=== PATIENT | male | born 1985 | race African-American/Black ===

== ENCOUNTER 2019-09-08 18:27 | Emergency (ER) | payer SELFPAY ==
--- OUTSIDE RECORDS SUMMARY | 2019-09-08 18:30 | XMS REPORT ---
[facility] Address Unknown Phone Unavailable Care Team Providers Care Golf Sales Manager Name Role Phone Unavailable Unavailable Problems This patient has no known problems. Allergies, Adverse Reactions, Alerts This patient has no known allergies or adverse reactions. Medications This patient has no known medications. Encounters Start Date/Time End Date/Time Encounter Type Admission Type Attending Clinicians Care Facility Care Department Encounter ID 2018-12-16 22:17:00 2018-12-16 22:17:00 Emergency E [id number] 2018-02-19 05:45:00 2018-02-19 05:45:00 [address] [id number]
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
--- OUTSIDE RECORDS SUMMARY | 2019-09-08 18:31 | XMS REPORT | Summary of Care ---
Author Author [facility] - Health Organization [facility] - Health Address Unknown Phone Unavailable Care Team Providers Care Underwriting Analyst Name Role Phone Pcp, Patient Does Not Have A PCP Krysten Qureshi MD PCP Reason for Referral * Radiology Services ([facility]) Referred By Contact Referred To Contact Status Reason Specialty Diagnoses / Procedures Graciela Garces MD [address] [place] [address] New Request Diagnostic Diagnoses Radiology Trauma P rocedures XR CHEST 2 VW * Radiology Services (STAT) Referred By Contact Referred To Contact Status Reason Specialty Diagnoses / [place] [address] [place] [address] New Request Diagnostic Diagnoses Radiology Trauma P rocedures XR CHEST 1 VW * Radiology Services (STAT) Referred By Contact Referred To Contact Status Reason Specialty Diagnoses / Procedures Madie Arana DO [address] [id number] New Request Diagnostic Diagnoses Radiology Trauma P rocedures XR ELBOW >3 VW RIGHT * Radiology Services (STAT) Referred By Contact Referred To Contact Status Reason Specialty Diagnoses / Procedures Madie Arana DO [address] [employer] [address] [address] New Request Diagnostic Diagnoses Radiology Trauma P rocedures XR HAND 3+ VW LEFT * Radiology Services (STAT) Referred By Contact Referred To Contact Status Reason Specialty Diagnoses / Procedures Madie Arana DO [address] [employer] [address] [address] New Request Diagnostic Diagnoses Radiology Trauma P rocedures XR FOREARM 2 VW LEFT * Radiology Services (STAT) Referred By Contact Referred To Contact Status Reason Specialty Diagnoses / Procedures Madie Arana DO [address] [place] [address] New Request Diagnostic Diagnoses Radiology Trauma P rocedures XR HUMERUS 2 VW LEFT * MRI/CAT Scan (STAT) Referred By Contact Referred To Contact Status Reason Specialty Diagnoses / Procedures Madie Arana DO [address] [place] [address] New Request Diagnostic Diagnoses Radiology Trauma P rocedures CT LUMBAR SPINE WO CONTRAST * MRI/CAT Scan (STAT) Referred By Contact Referred To Contact Status Reason Specialty Diagnoses / Procedures Madie Arana DO [address] [place] [address] New Request Diagnostic Diagnoses Radiology Trauma P rocedures CT ABDOMEN PELVIS W CONTRAST * MRI/CAT Scan (STAT) Referred By Contact Referred To Contact Status Reason Specialty Diagnoses / Procedures Madei Arana DO [address] [place] [address] New Request Diagnostic Diagnoses Radiology Trauma P rocedures CT THORACIC SPINE WO CONTRAST * MRI/CAT Scan (STAT) Referred By Contact Referred To Contact Status Reason Specialty Diagnoses / Procedures Madie Arana DO [address] [place] [address] New Request Diagnostic Diagnoses Radiology Trauma P rocedures CT CERVICAL SPINE WO CONTRAST * MRI/CAT Scan (STAT) Referred By Contact Referred To Contact Status Reason Specialty Diagnoses / Procedures Madie Arana DO [address] [place] [address] New Request Diagnostic Diagnoses Radiology Trauma P rocedures CT THORAX W CONTRAST * MRI/CAT Scan (STAT) Referred By Contact Referred To Contact Status Reason Specialty Diagnoses / Procedures Madie Arana DO [address] [place] [address] New Request Diagnostic Diagnoses Radiology Trauma P rocedures CT HEAD WO CONTRAST * Radiology Services (STAT) Referred By Contact Referred To Contact Status Reason Specialty Diagnoses / Procedures Madie Arana [id number] [place] [address] New Request Diagnostic Diagnoses Radiology Trauma P rocedures Chest 1 View * MRI/CAT Scan (STAT) Referred By Contact Referred To Contact Status Reason Specialty Diagnoses / Procedures Madie Arana, DO [address] [facility] [address] [place] [address] New Request Diagnostic Diagnoses Radiology Trauma P rocedures CT MAXILLA-FACIAL WO CONTRAST Reason for Visit * Reason Comments Altered mental status * Auth/Cert Referred By Contact Referred To Contact Status Reason Specialty Diagnoses / Procedures [facility] Emergency Dept [address] [place] [address] Emergency Medicine Encounter Details Care Team Description Date Type Department Madie Arana, [id number] [place] [address] [phone] Armen Velazquez MD [address] [place] [address] Seizure 08/29/2019 Emergency [facility] Health - Medicine/Surgery C[facility] 6B 08/30/2019 [address] [place] [address] Allergies No Known Allergiesdocumented as of this encounter (statuses as of 08/30/2019) Medications End Date Status Medication Sig Dispensed Refills Start Date Active clonazePAM 1 mg tablet Take 1 mg by 0 mouth 2 (two) times daily. Active ibuprofen 600 mg Take 1 tablet 40 tablet 0 tabletIndications: Trauma by mouth 0 every 6 (six) hours as needed for Pain (scale 4-6). 09/04/2019 Active HYDROcodone-acetaminophen Take 1 tablet 28 tablet 0 5-325 mg by mouth 0 tabletIndications: Trauma every 6 (six) hours as needed for Pain (scale 4-6) for up to 5 days. 09/04/2019 Active methocarbamol 500 mg Take 1 tablet 15 tablet 0 tabletIndications: Trauma by mouth 3 0 (three) times daily for 5 days. documented as of this encounter (statuses as of 08/30/2019) Active Problems Problem Noted Date Seizure 08/29/2019 Obesity (BMI 30-39.9) 08/29/2019 documented as of this encounter (statuses as of 08/30/2019) Immunizations Name Administration Dates Next Due Td 08/29/2019 documented as of this encounter Social History Date Tobacco Use Types Packs/Day Years Used Former Smoker Comments: stopped smoking about 3 months ago Education Answer Date Recorded What is the highest level of school you have High school graduate 08/29/2019 completed or the highest degree you have received? Financial Resource Strain Answer Date Recorded How hard is it for you to pay for the very basics Not hard at all 08/29/2019 like food, housing, medical care, and heating? Food Insecurity Answer Date Recorded Within the past 12 months, you worried that your Never true 08/29/2019 food would run out before you got money to buy more. Within the past 12 months, the food you bought Never true 08/29/2019 just didn't last and you didn't have money to get more. Transportation Needs Answer Date Recorded In the past 12 months, has lack of transportation No 08/29/2019 kept you from medical appointments or from getting medications? In the past 12 months, has lack of transportation No 08/29/2019 kept you from meetings, work, or getting things needed for daily living? Sex Assigned at Date Recorded Not on file Industry Job Start Date Occupation Not on file Not on file Not on file Travel End Travel History Travel Start No recent travel history available. documented as of this encounter Last Filed Vital Signs Reading Time Taken Comments Vital Sign 133/77 08/30/2019 11:14 AM CDT Blood Pressure 61 08/30/2019 11:14 AM CDT Pulse 36.7 C (98 F) 08/30/2019 11:14 AM CDT Temperature 18 08/30/2019 11:14 AM CDT Respiratory Rate 96% 08/30/2019 11:14 AM CDT Oxygen Saturation - - Inhaled Oxygen Concentration 100.2 kg (221 lb) 08/29/2019 3:40 AM CDT Weight 177.8 cm (5' 10") 08/29/2019 3:40 AM CDT Height 31.71 08/29/2019 3:40 AM CDT Body Mass Index documented in this encounter Discharge Summaries * Graciela Garces MD - 08/30/2019 11:38 AM CDT CLS Team Discharge Summary Date of Service: 08/30/2019 ADMIT DATE: 08/29/2019 DISCHARGE DATE: 08/30/2019 ATTENDING MD: Graciela Garces MD PCP: PATIENT DOES NOT HAVE A PCP REASON FOR ADMISSION Trauma FINAL DIAGNOSIS: Trauma Seizure post trauma Suspected pneumothorax/trumatic. Active Problems: Seizure (08/29/2019) POA: Yes Obesity (BMI 30-39.9) (08/29/2019) POA: Unknown Resolved Problems: * No resolved hospital problems. * Orders Placed This Encounter CONSULT NEUROLOGY CONSULT PAIN SERVICES Orders Placed This Encounter Fast Ultrasound Temp: [36.4 C (97.5 F)-37.4 C (99.4 F)] Pulse: [61-85] Resp: [18-20] BP: (113-138)/(69-94) Physical Exam SIGNIFICANT LAB/X-RAYS: Recent Results (from the past 48 hour(s)) POCT GLUCOSE (AUTOMATED) Collection Time: 08/29/19 3:44 AM Result Value Ref Range POCT GLU 238 (H) 70 - 110 mg/dL Basic Metabolic Panel (NA, K, CL, CO2, GLUCOSE, BUN, CREATININE, CA) Collection Time: 08/29/19 4:00 AM Result Value Ref Range NA 142 135 - 145 mmol/L K 3.7 3.5 - 5.0 mmol/L CL 109 (H) 98 - 108 mmol/L CO2 TOTAL 20 (L) 23 - 31 mmol/L AGAP 13 2 - 16 BUN 10 7 - 23 mg/dL GLUCOSE 200 (H) 70 - 110 mg/dL CREATININE 0.81 0.60 - 1.25 mg/dL CALCIUM 8.5 (L) 8.6 - 10.6 mg/dL eGFR Calculation (Non-) 110.4 mL/min/1.73m2 eGFR Calculation () 133.8 mL/min/1.73m2 Profile / Hemogram Collection Time: 08/29/19 4:00 AM Result Value Ref Range WBC 6.48 4.20 - 10.70 10*3/L RBC 4.35 4.26 - 5.52 10*6/L HGB 14.1 12.2 - 16.4 g/dL HCT 40.1 38.4 - 49.3 % MCH 32.4 26.1 - 32.7 pg MCV 92.2 81.7 - 95.6 fL MCHC 35.2 (H) 31.2 - 35.0 g/dL PLT 219 150 - 328 10*3/L MPV 9.3 (L) 9.8 - 13.0 fL RDW-CV 12.2 12.1 - 15.4 % RDW-SD 41.2 38.5 - 51.6 fL NRBC x10^3 <0.01 10*3/L NRBC/100 WBC 0.0 0.0 - 10.0 /100 WBCs IPF % Prothrombin Time (PT) / INR Collection Time: 08/29/19 4:00 AM Result Value Ref Range PROTIME PATIENT 10.9 10.1 - 12.6 Seconds INR 1.0 aPTT Collection Time: 08/29/19 4:00 AM Result Value Ref Range APTT Patient 24 (L) 26 - 36 Seconds HEPATIC FUNCTION PANEL (80010) (ALB,T.PRO,BILI T,BU/BC,ALT,AST,ALK PHOS) Collection Time: 08/29/19 4:00 AM Result Value Ref Range TOTAL BILI 0.5 0.1 - 1.1 mg/dL BILI UNCON 0.6 0.1 - 1.1 mg/dL BILI CONJ 0.0 0.0 - 0.3 mg/dL T PROTEIN 7.0 6.3 - 8.2 g/dL ALBUMIN 4.4 3.5 - 5.0 g/dL ALK PHOS 41 34 - 122 U/L ALTv 23 5 - 50 U/L AST(SGOT) 29 13 - 40 U/L DRUG PANEL 2 URINE Collection Time: 08/29/19 4:01 AM Result Value Ref Range AMPHET Presumptive Positive (A) Negative NEO U Negative Negative BENZO U Negative Negative Cocaine Metabolite Negative Negative METHADONE Negative Negative OPIATES Negative Negative PCP Negative Negative THC Negative Negative Acute Care Arterial Blood Gas. Collection Time: 08/29/19 4:53 AM Result Value Ref Range PH 7.30 (L) 7.35 - 7.45 PCO2 39 35 - 45 mmHg PO2 151 (H) 80 - 100 mmHg HCO3 19 (L) 22 - 26 mEq/L BE -7.0 (L) -3.0 - 3.0 mEq/L POCT GLUCOSE (AUTOMATED) Collection Time: 08/29/19 5:07 AM Result Value Ref Range POCT GLU 89 70 - 110 mg/dL POCT GLUCOSE (AUTOMATED) Collection Time: 08/29/19 5:50 AM Result Value Ref Range POCT GLU 88 70 - 110 mg/dL Xr Chest 1 Vw Result Date: 08/29/2019 No acute intrathoracic abnormality. Chest 1 View Result Date: 08/29/2019 Impression: No radiographic evidence for acute cardiopulmonary disease. RL: 460 AFC: [id number] Xr Chest 2 Vw Result Date: 08/30/2019 No acute intrathoracic abnormality. Ct Abdomen Pelvis W Contrast Result Date: 08/29/2019 2 tiny foci of pneumothorax in the right lung apex versus paraseptal emphysema. No rib fracture is appreciated. Dependent atelectasis in the lungs bilaterally. No CT evidence for acute trauma to the abdomen or pelvis. No acute fracture or d islocation of the thoracic or lumbar spine. RL: 460 AFC: [id number] Electronically si gned by Sharita Rivas MD, PhD at 08/29/2019 5:[address] Cervical Spine Wo Contrast Result Date: 08/29/2019 Impression: No CT evidence for acute intracranial abnormality. No acute facial f racture. Subcutaneous hematoma overlying the left zygomatic arch. No acute fract ure or dislocation of the cervical spine. RL: 460 AFC: [id number] Electronically sign ed by Sharita Rivas MD, PhD at 08/29/2019 5:[address] Maxilla-facial Wo Contrast Result Date: 08/29/2019 Impression: No CT evidence for acute intracranial abnormality. No acute facial f racture. Subcutaneous hematoma overlying the left zygomatic arch. No acute fract ure or dislocation of the cervical spine. RL: 460 AFC: [id number] Electronically sign ed by Sharita Rivas MD, PhD at 08/29/2019 5:[address] Head Wo Contrast Result Date: 08/29/2019 Impression: No CT evidence for acute intracranial abnormality. No acute facial f racture. Subcutaneous hematoma overlying the left zygomatic arch. No acute fract ure or dislocation of the cervical spine. RL: 460 AFC: [id number] Electronically sign ed by Sharita Rivas MD, PhD at 08/29/2019 5:[address] Lumbar Spine Wo Contrast Result Date: 08/29/2019 2 tiny foci of pneumothorax in the right lung apex versus paraseptal emphysema. No rib fracture is appreciated. Dependent atelectasis in the lungs bilaterally. No CT evidence for acute trauma to the abdomen or pelvis. No acute fracture or d islocation of the thoracic or lumbar spine. RL: 460 AFC: [id number] Electronically si gned by Sharita Rivas MD, PhD at 08/29/2019 5:[address] Thoracic Spine Wo Contrast Result Date: 08/29/2019 2 tiny foci of pneumothorax in the right lung apex versus paraseptal emphysema. No rib fracture is appreciated. Dependent atelectasis in the lungs bilaterally. No CT evidence for acute trauma to the abdomen or pelvis. No acute fracture or d islocation of the thoracic or lumbar spine. RL: 460 AFC: [id number] Electronically si gned by Sharita Rivas MD, PhD at 08/29/2019 5:[address] Thorax W Contrast Result Date: 08/29/2019 2 tiny foci of pneumothorax in the right lung apex versus paraseptal emphysema. No rib fracture is appreciated. Dependent atelectasis in the lungs bilaterally. No CT evidence for acute trauma to the abdomen or pelvis. No acute fracture or d islocation of the thoracic or lumbar spine. RL: 460 AFC: [id number] Electronically si gned by Sharita Rivas MD, PhD at 08/29/2019 5:33 AM Xr Elbow >3 Vw Right Result Date: 08/29/2019 Status post extensive plate and screw fixation of the proximal ulna. No definite acute fracture is appreciated. Evaluation is limited by nonstandard views. RL: 460 AFC: [id number] 6 :29 AM Xr Forearm 2 Vw Left Result Date: 08/29/2019 No acute osseous abnormality of the left forearm or hand appreciated. RL: 460 AF C: [id number] Xr Hand 3+ Vw Left Result Date: 08/29/2019 No acute osseous abnormality of the left forearm or hand appreciated. RL: 460 AF C: [id number] Xr Humerus 2 Vw Left Result Date: 08/29/2019 No acute osseous abnormality of the left humerus. RL: 460 AFC: [id number] Electronica lly signed by Sharita Rivas MD, PhD at 08/29/2019 5:35 AM I saw and examined the patient today. No CP or SOB, no cough or bleeding, toelra ting po well. VSS General: alert and oriented x 3 ; no apparent distress, follows commands HEENT: normocephalic atraumatic, pupils equal, round, reactive to light Neck: supple, no lymphadenopathy, no bruits, no JVD Lungs: clear to auscultation bilaterally, no crackles, no wheezes, cough is stro ng and effective Cardio: regular rate and rhythm, no murmurs, no gallops Abdomen: soft; non-tender; non-distended; normoactive bowel sounds Extremities: no clubbing, cyanosis, or edema, no deformities Skin: no rashes, tattoos, no ulcers, no itching padgett Neuro: cranial nerves grossly intact; sensation grossly intact; muscle strength grossly normal in all four extremities, no aphasia : no tenderness, no distension, no retention and no reported discharges Hematology: no bleeds, no hemorrhages, no lymphedema and no lymphadenopathy HOSPITAL COURSE: Post trauma seizure Asymptomatic < 20% spontaneous pneumothorax Left subcutaneous hematoma overlying the zygomatic arch Amphetamine use PLAN: Neurology consulted, no AED recommended. Ambulating, tolerating po well. Repeat CXR PA/L assuring. Patient is asymptomatic, no CP or SOB, sat well on RA. Pain Mx. Appreciate trauma surgery recommendations Discharge home ITEMS FOR FOLLOW UP PROVIDER: (including pending labs/cultures/studies, anticipa jeremy problems, etc.) FUNCTIONAL STATUS: fully ambulatory DISCHARGE CONDITION: good COGNITIVE STATUS: cognitively intact DISCHARGE INSTRUCTIONS: Discharge Orders Regular Diet; Texture: Regular. Texture Regular. Diabetic: Unobtainable Discharge Condition - Discharge Condition: GOOD Discharge Activity Discharge Activity: Ambulate VTE Propylaxis- Was ordered during hospitalization Discharge Instructions Order Comments: With your primary physician in 1-2 weeks Call 911 if you develop chest pain, breathing trouble, dizziness or worsening sy mptoms. DISCHARGE MEDICATIONS: Current Discharge Medication List START taking these medications Details ibuprofen (IBU) 600 mg Take 600 mg by mouth every 6 (six) hours as needed for Pa in (scale 4-6). Qty: 40 tablet, Refills: 0 Start date: 08/30/2019 Associated Diagnoses: Trauma CONTINUE these medications which have NOT CHANGED Details clonazePAM (KLONOPIN) 1 mg Take 1 mg by mouth 2 (two) times daily. WOUND CARE: CODE STATUS: full code OXYGEN (is patient being discharged on oxygen): no PATIENT EDUCATION PROVIDED: DISCHARGE: home self care FOLLOW-UP APPOINTMENT: PLAN FOR READMISSION: No Please call or text [phone] to contact Graciela Garces MD with any quest ions. - documented in this encounter Discharge Instructions * Appointments* Elena August - 08/30/2019 11:58 AM CDT Follow up appointment scheduled by Elena August. * Attachments The following attachments cannot be sent through Care Everywhere.* Ibuprofen tablets and capsules (Kittitian) * Seizure, New Onset, Unknown Cause (Adult) (Kittitian) * Acetaminophen; Hydrocodone tablets or capsules (Kittitian) * Methocarbamol tablets (Kittitian) documented in this encounter Progress Notes * Christen Law LMSW - 08/30/2019 12:16 PM CDT Care Management Discharge Disposition Note (DCDN) 5-2-1 Interventions: Disease specific education;Clear discharge plan 5-2-1 Providers: Physician;Night Order Selector/Vp Data;Nurse 5-2-1 Patient Capacity Improvements: Avoidance of adverse events/readmission Discharge Plan for ongoing care and services: Home Discussed with patient/patients family involved in decision making: Yes Patient or family caregiver understands, and agrees with discharge plan. Community resources/referrals made or provided to patient: No Transportation: Private Vehicle; Donna Sheth [phone] Mental Status: Alert & Oriented to Person,Place & Time Living Arrangement: Apartment: Downstairs Address of living arrangement: [address] [facility] [address] [place] [address] Funding Resources: Commercial; BCBS Nursing informed of discharge plan: Yes Name of RN informed: Peris Estimated discharge date: 08/30/19 Time: 1400 CM/SW Name & Contact number: Christen Law LMSW Vp Data - [facility] Department of Care Management E: [email or web address] P: [phone] The following information has been provided to the facility noted above: reason for the patient discharge or transfer; patients physical and psychosocial sta tus; summary of care, treatment, services provided to patient; and the patient p rogress toward goals. documented in this encounter Plan of Treatment Care Team Description Date [place] [address] [facility] [address] [facility] [address] [place] [address] [phone] 09/09/2019 Office Visit Family Medicine Health Maintenance Due Date Last Done Comments VARICELLA VACCINES (1 of 12/09/1987 2 - 2-dose childhood series) DTaP,Tdap,and Td Vaccines 1997 08/29/2019 (1 - Tdap) INFLUENZA VACCINE (#1) 2019 PNEUMOCOCCAL 0-64 YEARS Aged Out No longer eligible based COMBINED SERIES on patient's age to complete this topic documented as of this encounter Implants Device Identifier Shelf Expiration Date Model / Serial / Lot Implanted Type Area Manufactur er Plates And Screws In Elbow documented as of this encounter Procedures Comments Procedure Name Priority Date/Time Associated Diagnosis XR CHEST 2 VW PAULINO 08/30/2019 Trauma 10:33 AM CDT XR CHEST 1 VW STAT 08/29/2019 Trauma 11:43 AM CDT POCT GLUCOSE (AUTOMATED) Routine 08/29/2019 5:50 AM CDT POCT GLUCOSE (AUTOMATED) Routine 08/29/2019 5:[address] LUMBAR SPINE WO STAT 08/29/2019 Trauma CONTRAST 4:[address] ABDOMEN PELVIS W STAT 08/29/2019 Trauma CONTRAST 4:[address] THORACIC SPINE WO STAT 08/29/2019 Trauma CONTRAST 4:[address] THORAX W CONTRAST STAT 08/29/2019 Trauma 4:55 AM CDT ACUTE CARE ARTERIAL BLOOD STAT 08/29/2019 Trauma GAS 4:53 AM CDT XR HAND 3+ VW LEFT STAT 08/29/2019 Trauma 4:49 AM CDT XR FOREARM 2 VW LEFT STAT 08/29/2019 Trauma 4:49 AM CDT XR HUMERUS 2 VW LEFT STAT 08/29/2019 Trauma 4:49 AM CDT XR CHEST 1 VW STAT 08/29/2019 Trauma 4:47 AM CDT XR ELBOW >3 VW RIGHT STAT 08/29/2019 Trauma 4:[address] MAXILLOFACIAL/MANDIBLE STAT 08/29/2019 Trauma WO CONTRAST 4:[address] CERVICAL SPINE WO STAT 08/29/2019 Trauma CONTRAST 4:[address] HEAD WO CONTRAST STAT 08/29/2019 Trauma 4:46 AM CDT FAST ULTRASOUND Routine 08/29/2019 4:17 AM CDT GALV/CLC ONLY - URINE STAT 08/29/2019 Trauma DRUG (IMMUNOASSAY) - 4:01 AM CDT COMPREHENSIVE DRUG SCREEN ACTIVATED PARTIAL STAT 08/29/2019 Trauma THRMPLAS KYRA 4:00 AM CDT PROTHROMBIN TIME / INR STAT 08/29/2019 Trauma 4:00 AM CDT PROFILE / HEMOGRAM STAT 08/29/2019 Trauma 4:00 AM CDT BASIC METABOLIC PANEL STAT 08/29/2019 Trauma (NA, K, CL, CO2, GLUCOSE, 4:00 AM CDT BUN, CREATININE, CA) HEPATIC FUNCTION PANEL STAT 08/29/2019 Trauma ([id number]) (ALB,T.PRO,BILI 4:00 AM CDT T,BU/BC,ALT,AST,ALK PHOS) POCT GLUCOSE (AUTOMATED) Routine 08/29/2019 3:44 AM CDT documented in this encounter Results * XR CHEST 2 VW (08/30/2019 10:33 AM CDT) Specimen Impressions Performed At No acute intrathoracic abnormality. PACS/VR/DOSE Narrative Performed At PROCEDURE: XR CHEST 2 VW PACS/VR/DOSE CLINICAL INDICATION: pneumothorax COMPARISON: 08/29/2019 FINDINGS: The lungs are partial expanded and clear. The right lung apex remains lucent. No pleural effusion or significant pneumothorax is seen. The cardiomediastinal silhouette is normal. No acute bony abnormality. Procedure Note [facility], Radiant Results Inft User - 08/30/2019 10:39 AM CDT PROCEDURE: XR CHEST 2 VW CLINICAL INDICATION: pneumothorax COMPARISON: 08/29/2019 FINDINGS: The lungs are partial expanded and clear. The right lung apex remains lucent. No pleural effusion or significant pneumothorax is seen. The cardiomediastinal silhouette is normal. No acute bony abnormality. IMPRESSION No acute intrathoracic abnormality. Performing Organization Address City/State/[place] Phone Number PACS/VR/DOSE * XR CHEST 1 VW (08/29/2019 11:43 AM CDT) Specimen Impressions Performed At No acute intrathoracic abnormality. PACS/VR/DOSE Narrative Performed At PROCEDURE: XR CHEST 1 VW PACS/VR/DOSE CLINICAL INDICATION: CT finding of PTX, f/u exam COMPARISON: 08/29/2019 FINDINGS: The lungs are partial expanded and clear No pleural effusion or pneumothorax is seen. The cardiomediastinal silhouette is normal. No acute bony abnormality. Procedure Note [facility], Radiant Results Inft User - 08/29/2019 12:04 PM CDT PROCEDURE: XR CHEST 1 VW CLINICAL INDICATION: CT finding of PTX, f/u exam COMPARISON: 08/29/2019 FINDINGS: The lungs are partial expanded and clear No pleural effusion or pneumothorax is seen. The cardiomediastinal silhouette is normal. No acute bony abnormality. IMPRESSION No acute intrathoracic abnormality. Performing Organization Address [facility] Phone Number PACS/VR/DOSE * POCT GLUCOSE (AUTOMATED) (08/29/2019 5:50 AM CDT) POCT GLU 88Comment: Notified Provider 70 - 110 mg/dL [facility] Specimen Blood Performing Organization Address [facility] Phone Number [facility] CLIA: [id number], [address] [place] [address] St * POCT GLUCOSE (AUTOMATED) (08/29/2019 5:07 AM CDT) POCT GLU 89Comment: Notified Provider 70 - 110 mg/dL [facility] Specimen Blood Performing Organization Address [facility] Phone Number [facility] CLIA: [id number], [address] [place] [address] St * CT LUMBAR SPINE WO CONTRAST (08/29/2019 4:56 AM CDT) Specimen Impressions Performed At 2 tiny foci of pneumothorax in the right lung apex versus paraseptal PACS/VR/DOSE emphysema. No rib fracture is appreciated. Dependent atelectasis in the lungs bilaterally. No CT evidence for acute trauma to the abdomen or pelvis. No acute fracture or dislocation of the thoracic or lumbar spine. RL: 460 [facility]: [id number] Narrative Performed At Indication: Blunt trauma to the chest, abdomen, pelvis and proximal PACS/VR/DOSE COMPARISON: None TECHNIQUE: CT of the chest, abdomen and pelvis was performed following administration of intravenous contrast material. Small sysfc-zo-kvvi axial images of the thoracic and lumbar spine were reformatted from the original data set. Images were reformatted in the coronal and sagittal plane. CT scan was performed according to ALARA (as low as reasonably achievable) policy. FINDINGS: There is no CT evidence for mediastinal vascular injury. The heart is normal in size without pericardial effusion. There are 2 tiny foci of pneumothorax in the right lung apex versus minimal paraseptal emphysema. There is dependent atelectasis in the lungs bilaterally. Bone windows through the chest demonstrate no acute fracture or dislocation. The liver, gallbladder, spleen, adrenal glands and pancreas are within normal limits. The kidneys are normal in appearance bilaterally without hydronephrosis or perinephric fluid collection. No free fluid or air is seen in the abdomen or pelvis. There is no bowel obstruction. The urinary bladder is partially decompressed around a Campos catheter. Bone windows through the abdomen and pelvis demonstrate no acute fracture or dislocation. Dedicated imaging of the thoracic and lumbar spine demonstrate no acute fracture or dislocation. The spine is in normal anatomic alignment. There is no significant central canal stenosis. Procedure Note [facility], Radiant Results Inft User - 08/29/2019 5:34 AM CDT Indication: Blunt trauma to the chest, abdomen, pelvis and proximal COMPARISON: None TECHNIQUE: CT of the chest, abdomen and pelvis was performed following administration of intravenous contrast material. Small phocu-st-wxvp axial images of the thoracic and lumbar spine were reformatted from the original data set. Images were reformatted in the coronal and sagittal plane. CT scan was performed according to ALARA (as low as reasonably achievable) policy. FINDINGS: There is no CT evidence for mediastinal vascular injury. The heart is normal in size without pericardial effusion. There are 2 tiny foci of pneumothorax in the right lung apex versus minimal paraseptal emphysema. There is dependent atelectasis in the lungs bilaterally. Bone windows through the chest demonstrate no acute fracture or dislocation. The liver, gallbladder, spleen, adrenal glands and pancreas are within normal limits. The kidneys are normal in appearance bilaterally without hydronephrosis or perinephric fluid collection. No free fluid or air is seen in the abdomen or pelvis. There is no bowel obstruction. The urinary bladder is partially decompressed around a Campos catheter. Bone windows through the abdomen and pelvis demonstrate no acute fracture or dislocation. Dedicated imaging of the thoracic and lumbar spine demonstrate no acute fracture or dislocation. The spine is in normal anatomic alignment. There is no significant central canal stenosis. IMPRESSION 2 tiny foci of pneumothorax in the right lung apex versus paraseptal emphysema. No rib fracture is appreciated. Dependent atelectasis in the lungs bilaterally. No CT evidence for acute trauma to the abdomen or pelvis. No acute fracture or dislocation of the thoracic or lumbar spine. RL: 460 AF: [id number] Performing Organization Address City/State/Zipcode Phone Number PACS/VR/DOSE * CT ABDOMEN PELVIS W CONTRAST (08/29/2019 4:56 AM CDT) Specimen Impressions Performed At 2 tiny foci of pneumothorax in the right lung apex versus paraseptal PACS/VR/DOSE emphysema. No rib fracture is appreciated. Dependent atelectasis in the lungs bilaterally. No CT evidence for acute trauma to the abdomen or pelvis. No acute fracture or dislocation of the thoracic or lumbar spine. RL: 460 AFC: [id number] Narrative Performed At Indication: Blunt trauma to the chest, abdomen, pelvis and proximal PACS/VR/DOSE COMPARISON: None TECHNIQUE: CT of the chest, abdomen and pelvis was performed following administration of intravenous contrast material. Small gubus-ei-isrt axial images of the thoracic and lumbar spine were reformatted from the original data set. Images were reformatted in the coronal and sagittal plane. CT scan was performed according to ALARA (as low as reasonably achievable) policy. FINDINGS: There is no CT evidence for mediastinal vascular injury. The heart is normal in size without pericardial effusion. There are 2 tiny foci of pneumothorax in the right lung apex versus minimal paraseptal emphysema. There is dependent atelectasis in the lungs bilaterally. Bone windows through the chest demonstrate no acute fracture or dislocation. The liver, gallbladder, spleen, adrenal glands and pancreas are within normal limits. The kidneys are normal in appearance bilaterally without hydronephrosis or perinephric fluid collection. No free fluid or air is seen in the abdomen or pelvis. There is no bowel obstruction. The urinary bladder is partially decompressed around a Campos catheter. Bone windows through the abdomen and pelvis demonstrate no acute fracture or dislocation. Dedicated imaging of the thoracic and lumbar spine demonstrate no acute fracture or dislocation. The spine is in normal anatomic alignment. There is no significant central canal stenosis. Procedure Note [facility], Radiant Results In[facility] User - 08/29/2019 5:34 AM CDT Indication: Blunt trauma to the chest, abdomen, pelvis and proximal COMPARISON: None TECHNIQUE: CT of the chest, abdomen and pelvis was performed following administration of intravenous contrast material. Small icyam-vc-olxu axial images of the thoracic and lumbar spine were reformatted from the original data set. Images were reformatted in the coronal and sagittal plane. CT scan was performed according to ALARA (as low as reasonably achievable) policy. FINDINGS: There is no CT evidence for mediastinal vascular injury. The heart is normal in size without pericardial effusion. There are 2 tiny foci of pneumothorax in the right lung apex versus minimal paraseptal emphysema. There is dependent atelectasis in the lungs bilaterally. Bone windows through the chest demonstrate no acute fracture or dislocation. The liver, gallbladder, spleen, adrenal glands and pancreas are within normal limits. The kidneys are normal in appearance bilaterally without hydronephrosis or perinephric fluid collection. No free fluid or air is seen in the abdomen or pelvis. There is no bowel obstruction. The urinary bladder is partially decompressed around a Campos catheter. Bone windows through the abdomen and pelvis demonstrate no acute fracture or dislocation. Dedicated imaging of the thoracic and lumbar spine demonstrate no acute fracture or dislocation. The spine is in normal anatomic alignment. There is no significant central canal stenosis. IMPRESSION 2 tiny foci of pneumothorax in the right lung apex versus paraseptal emphysema. No rib fracture is appreciated. Dependent atelectasis in the lungs bilaterally. No CT evidence for acute trauma to the abdomen or pelvis. No acute fracture or dislocation of the thoracic or lumbar spine. RL: 460 AFC: [id number] Performing Organization Address City/State/Zipcode Phone Number PACS/VR/DOSE * CT THORACIC SPINE WO CONTRAST (08/29/2019 4:56 AM CDT) Specimen Impressions Performed At 2 tiny foci of pneumothorax in the right lung apex versus paraseptal PACS/VR/DOSE emphysema. No rib fracture is appreciated. Dependent atelectasis in the lungs bilaterally. No CT evidence for acute trauma to the abdomen or pelvis. No acute fracture or dislocation of the thoracic or lumbar spine. RL: 460 AFC: [id number] Narrative Performed At Indication: Blunt trauma to the chest, abdomen, pelvis and proximal PACS/VR/DOSE COMPARISON: None TECHNIQUE: CT of the chest, abdomen and pelvis was performed following administration of intravenous contrast material. Small hkuuo-qs-nmql axial images of the thoracic and lumbar spine were reformatted from the original data set. Images were reformatted in the coronal and sagittal plane. CT scan was performed according to ALARA (as low as reasonably achievable) policy. FINDINGS: There is no CT evidence for mediastinal vascular injury. The heart is normal in size without pericardial effusion. There are 2 tiny foci of pneumothorax in the right lung apex versus minimal paraseptal emphysema. There is dependent atelectasis in the lungs bilaterally. Bone windows through the chest demonstrate no acute fracture or dislocation. The liver, gallbladder, spleen, adrenal glands and pancreas are within normal limits. The kidneys are normal in appearance bilaterally without hydronephrosis or perinephric fluid collection. No free fluid or air is seen in the abdomen or pelvis. There is no bowel obstruction. The urinary bladder is partially decompressed around a Campos catheter. Bone windows through the abdomen and pelvis demonstrate no acute fracture or dislocation. Dedicated imaging of the thoracic and lumbar spine demonstrate no acute fracture or dislocation. The spine is in normal anatomic alignment. There is no significant central canal stenosis. Procedure Note [facility], Radiant Results In[facility] User - 08/29/2019 5:34 AM CDT Indication: Blunt trauma to the chest, abdomen, pelvis and proximal COMPARISON: None TECHNIQUE: CT of the chest, abdomen and pelvis was performed following administration of intravenous contrast material. Small gmzlq-la-goyc axial images of the thoracic and lumbar spine were reformatted from the original data set. Images were reformatted in the coronal and sagittal plane. CT scan was performed according to ALARA (as low as reasonably achievable) policy. FINDINGS: There is no CT evidence for mediastinal vascular injury. The heart is normal in size without pericardial effusion. There are 2 tiny foci of pneumothorax in the right lung apex versus minimal paraseptal emphysema. There is dependent atelectasis in the lungs bilaterally. Bone windows through the chest demonstrate no acute fracture or dislocation. The liver, gallbladder, spleen, adrenal glands and pancreas are within normal limits. The kidneys are normal in appearance bilaterally without hydronephrosis or perinephric fluid collection. No free fluid or air is seen in the abdomen or pelvis. There is no bowel obstruction. The urinary bladder is partially decompressed around a Campos catheter. Bone windows through the abdomen and pelvis demonstrate no acute fracture or dislocation. Dedicated imaging of the thoracic and lumbar spine demonstrate no acute fracture or dislocation. The spine is in normal anatomic alignment. There is no significant central canal stenosis. IMPRESSION 2 tiny foci of pneumothorax in the right lung apex versus paraseptal emphysema. No rib fracture is appreciated. Dependent atelectasis in the lungs bilaterally. No CT evidence for acute trauma to the abdomen or pelvis. No acute fracture or dislocation of the thoracic or lumbar spine. RL: 460 AF: [id number] Performing Organization Address City/State/Zipcode Phone Number PACS/VR/DOSE * CT THORAX W CONTRAST (08/29/2019 4:55 AM CDT) Specimen Impressions Performed At 2 tiny foci of pneumothorax in the right lung apex versus paraseptal PACS/VR/DOSE emphysema. No rib fracture is appreciated. Dependent atelectasis in the lungs bilaterally. No CT evidence for acute trauma to the abdomen or pelvis. No acute fracture or dislocation of the thoracic or lumbar spine. RL: 460 AF: [id number] Narrative Performed At Indication: Blunt trauma to the chest, abdomen, pelvis and proximal PACS/VR/DOSE COMPARISON: None TECHNIQUE: CT of the chest, abdomen and pelvis was performed following administration of intravenous contrast material. Small bioor-dr-ngzr axial images of the thoracic and lumbar spine were reformatted from the original data set. Images were reformatted in the coronal and sagittal plane. CT scan was performed according to ALARA (as low as reasonably achievable) policy. FINDINGS: There is no CT evidence for mediastinal vascular injury. The heart is normal in size without pericardial effusion. There are 2 tiny foci of pneumothorax in the right lung apex versus minimal paraseptal emphysema. There is dependent atelectasis in the lungs bilaterally. Bone windows through the chest demonstrate no acute fracture or dislocation. The liver, gallbladder, spleen, adrenal glands and pancreas are within normal limits. The kidneys are normal in appearance bilaterally without hydronephrosis or perinephric fluid collection. No free fluid or air is seen in the abdomen or pelvis. There is no bowel obstruction. The urinary bladder is partially decompressed around a Campos catheter. Bone windows through the abdomen and pelvis demonstrate no acute fracture or dislocation. Dedicated imaging of the thoracic and lumbar spine demonstrate no acute fracture or dislocation. The spine is in normal anatomic alignment. There is no significant central canal stenosis. Procedure Note [facility], Radiant Results In[facility] User - 08/29/2019 5:35 AM CDT Indication: Blunt trauma to the chest, abdomen, pelvis and proximal COMPARISON: None TECHNIQUE: CT of the chest, abdomen and pelvis was performed following administration of intravenous contrast material. Small cuvst-lf-ydyk axial images of the thoracic and lumbar spine were reformatted from the original data set. Images were reformatted in the coronal and sagittal plane. CT scan was performed according to ALARA (as low as reasonably achievable) policy. FINDINGS: There is no CT evidence for mediastinal vascular injury. The heart is normal in size without pericardial effusion. There are 2 tiny foci of pneumothorax in the right lung apex versus minimal paraseptal emphysema. There is dependent atelectasis in the lungs bilaterally. Bone windows through the chest demonstrate no acute fracture or dislocation. The liver, gallbladder, spleen, adrenal glands and pancreas are within normal limits. The kidneys are normal in appearance bilaterally without hydronephrosis or perinephric fluid collection. No free fluid or air is seen in the abdomen or pelvis. There is no bowel obstruction. The urinary bladder is partially decompressed around a Campos catheter. Bone windows through the abdomen and pelvis demonstrate no acute fracture or dislocation. Dedicated imaging of the thoracic and lumbar spine demonstrate no acute fracture or dislocation. The spine is in normal anatomic alignment. There is no significant central canal stenosis. IMPRESSION 2 tiny foci of pneumothorax in the right lung apex versus paraseptal emphysema. No rib fracture is appreciated. Dependent atelectasis in the lungs bilaterally. No CT evidence for acute trauma to the abdomen or pelvis. No acute fracture or dislocation of the thoracic or lumbar spine. RL: 460 AF: [id number] Performing Organization Address City/State/Zipcode Phone Number PACS/VR/DOSE * Acute Care Arterial Blood Gas. (08/29/2019 4:53 AM CDT) PH 7.30 (L) 7.35 - 7.45 [facility] PCO2 39 35 - 45 mmHg [facility] PO2 151 (H) 80 - 100 mmHg [facility] HCO3 19 (L) 22 - 26 mEq/L [facility] BE -7.0 (L) -3.0 - 3.0 mEq/L [facility] Specimen Blood Performing Organization Address [facility]/Zipcode Phone Number [facility] CLIA: [id number], [address] [place] [address] [facility] * XR HAND 3+ VW LEFT (08/29/2019 4:49 AM CDT) Specimen Impressions Performed At No acute osseous abnormality of the left forearm or hand appreciated. PACS/VR/DOSE RL: 460 AFC: [id number] Narrative Performed At Ordering physician: MADIE ARANA PACS/VR/DOSE INDICATION: Blunt trauma to the left upper extremity COMPARISON: None FINDINGS: AP and lateral views of the left forearm and 3 views of the left hand. No acute fracture or dislocation is appreciated. There is no radiopaque foreign body. Procedure Note [facility], [facility]iant Results [facility] User - 08/29/2019 5:38 AM CDT Ordering physician: MADIE ARANA INDICATION: Blunt trauma to the left upper extremity COMPARISON: None FINDINGS: AP and lateral views of the left forearm and 3 views of the left hand. No acute fracture or dislocation is appreciated. There is no radiopaque foreign body. IMPRESSION No acute osseous abnormality of the left forearm or hand appreciated. RL: 460 AFC: [id number] Performing Organization Address [facility] Phone Number PACS/VR/DOSE * XR FOREARM 2 VW LEFT (08/29/2019 4:49 AM CDT) Specimen Impressions Performed At No acute osseous abnormality of the left forearm or hand appreciated. PACS/VR/DOSE RL: 460 AFC: [id number] Narrative Performed At Ordering physician: MADIE ARANA PACS/VR/DOSE INDICATION: Blunt trauma to the left upper extremity COMPARISON: None FINDINGS: AP and lateral views of the left forearm and 3 views of the left hand. No acute fracture or dislocation is appreciated. There is no radiopaque foreign body. Procedure Note [facility], [facility]iant Results [facility] User - 08/29/2019 5:38 AM CDT Ordering physician: MADIE ARANA INDICATION: Blunt trauma to the left upper extremity COMPARISON: None FINDINGS: AP and lateral views of the left forearm and 3 views of the left hand. No acute fracture or dislocation is appreciated. There is no radiopaque foreign body. IMPRESSION No acute osseous abnormality of the left forearm or hand appreciated. RL: 460 AFC: [id number] Performing Organization Address City/State/[employer] Phone Number PACS/VR/DOSE * XR HUMERUS 2 VW LEFT (08/29/2019 4:49 AM CDT) Specimen Impressions Performed At No acute osseous abnormality of the left humerus. PACS/VR/DOSE RL: 460 AFC: [id number] Narrative Performed At Ordering physician: MADIE ARANA PACS/VR/DOSE INDICATION: Blunt trauma trauma to the upper arm COMPARISON: None Findings AP and lateral views of the left humerus. No acute fracture or dislocation is appreciated. There is no radiopaque foreign body. Procedure Note [facility], Radiant Results [facility] User - 08/29/2019 5:37 AM CDT Ordering physician: MADIE ARANA INDICATION: Blunt trauma trauma to the upper arm COMPARISON: None Findings AP and lateral views of the left humerus. No acute fracture or dislocation is appreciated. There is no radiopaque foreign body. IMPRESSION No acute osseous abnormality of the left humerus. RL: 460 AFC: [id number] Performing Organization Address [facility]/[employer] Phone Number PACS/VR/DOSE * Chest 1 View (08/29/2019 4:47 AM CDT) Specimen Impressions Performed At Impression: PACS/VR/DOSE No radiographic evidence for acute cardiopulmonary disease. RL: 460 AFC: [id number] Narrative Performed At Indication: Acute blunt trauma to the chest PACS/VR/DOSE Comparison: None Findings: Single AP view of the chest. The cardiopericardial silhouette is within normal limits. The lungs are clear bilaterally. The visualized bony thorax is intact. Procedure Note [facility], Radiant Results [facility] User - 08/29/2019 5:39 AM CDT Indication: Acute blunt trauma to the chest Comparison: None Findings: Single AP view of the chest. The cardiopericardial silhouette is within normal limits. The lungs are clear bilaterally. The visualized bony thorax is intact. IMPRESSION Impression: No radiographic evidence for acute cardiopulmonary disease. RL: 460 AFC: [id number] Performing Organization Address [facility] Phone Number PACS/VR/DOSE * XR ELBOW >3 VW RIGHT (08/29/2019 4:47 AM CDT) Specimen Impressions Performed At Status post extensive plate and screw fixation of the proximal ulna. PACS/VR/DOSE No definite acute fracture is appreciated. Evaluation is limited by nonstandard views. RL: 460 AFC: [id number] Narrative Performed At Ordering physician: MADIE ARANA PACS/VR/DOSE INDICATION: Right elbow pain COMPARISON: None FINDINGS: 2 views of the right elbow. Evaluation is limited by lack of a true 90 degree lateral view. Within this limitation, no definite acute fracture or dislocation is appreciated. The patient is status post extensive plate and screw fixation of the proximal ulna. Procedure Note [facility], Radiant Results [facility] User - 08/29/2019 6:30 AM CDT Ordering physician: MADIE ARANA INDICATION: Right elbow pain COMPARISON: None FINDINGS: 2 views of the right elbow. Evaluation is limited by lack of a true 90 degree lateral view. Within this limitation, no definite acute fracture or dislocation is appreciated. The patient is status post extensive plate and screw fixation of the proximal ulna. IMPRESSION Status post extensive plate and screw fixation of the proximal ulna. No definite acute fracture is appreciated. Evaluation is limited by nonstandard views. RL: 460 AFC: [id number] Performing Organization Address City/State/[employer] Phone Number PACS/VR/DOSE * CT MAXILLA-FACIAL WO CONTRAST (08/29/2019 4:47 AM CDT) Specimen Impressions Performed At Impression: PACS/VR/DOSE No CT evidence for acute intracranial abnormality. No acute facial fracture. Subcutaneous hematoma overlying the left zygomatic arch. No acute fracture or dislocation of the cervical spine. RL: 460 [facility]: [id number] Narrative Performed At Indication: Acute head, facial and neck trauma PACS/VR/DOSE Comparison: CT of the cervical spine dated 12/25/2015 Technique: Axial images of the head, face and cervical spine were performed without administration of intravenous contrast material. Images of the face and cervical spine were reformatted in the coronal and sagittal plane. CT scan was performed according to ALARA (as low as reasonably achievable) policy. Findings: No acute intracranial abnormality is appreciated. Specifically, there is no acute intracranial hemorrhage, mass, mass effect, extra-axial fluid collection or hydrocephalus. The visualized paranasal sinuses are clear with the exception of mild chronic mucosal disease. No middle ear or mastoid effusion is appreciated. There is no calvarial fracture. The globes are intact bilaterally without CT evidence for retrobulbar hemorrhage. No acute facial fracture is appreciated. There is a subcutaneous hematoma overlying the left zygomatic arch. The cervical spine is in normal anatomic alignment. No acute fracture or dislocation is appreciated. There is no apical pneumothorax. Procedure Note [facility], Radiant Results In[facility] User - 08/29/2019 5:22 AM CDT Indication: Acute head, facial and neck trauma Comparison: CT of the cervical spine dated 12/25/2015 Technique: Axial images of the head, face and cervical spine were performed without administration of intravenous contrast material. Images of the face and cervical spine were reformatted in the coronal and sagittal plane. CT scan was performed according to ALARA (as low as reasonably achievable) policy. Findings: No acute intracranial abnormality is appreciated. Specifically, there is no acute intracranial hemorrhage, mass, mass effect, extra-axial fluid collection or hydrocephalus. The visualized paranasal sinuses are clear with the exception of mild chronic mucosal disease. No middle ear or mastoid effusion is appreciated. There is no calvarial fracture. The globes are intact bilaterally without CT evidence for retrobulbar hemorrhage. No acute facial fracture is appreciated. There is a subcutaneous hematoma overlying the left zygomatic arch. The cervical spine is in normal anatomic alignment. No acute fracture or dislocation is appreciated. There is no apical pneumothorax. IMPRESSION Impression: No CT evidence for acute intracranial abnormality. No acute facial fracture. Subcutaneous hematoma overlying the left zygomatic arch. No acute fracture or dislocation of the cervical spine. RL: 460 AF: [id number] Performing Organization Address City/State/Zipcode Phone Number PACS/VR/DOSE * CT CERVICAL SPINE WO CONTRAST (08/29/2019 4:46 AM CDT) Specimen Impressions Performed At Impression: PACS/VR/DOSE No CT evidence for acute intracranial abnormality. No acute facial fracture. Subcutaneous hematoma overlying the left zygomatic arch. No acute fracture or dislocation of the cervical spine. RL: 460 AFC: [id number] Narrative Performed At Indication: Acute head, facial and neck trauma PACS/VR/DOSE Comparison: CT of the cervical spine dated 12/25/2015 Technique: Axial images of the head, face and cervical spine were performed without administration of intravenous contrast material. Images of the face and cervical spine were reformatted in the coronal and sagittal plane. CT scan was performed according to ALARA (as low as reasonably achievable) policy. Findings: No acute intracranial abnormality is appreciated. Specifically, there is no acute intracranial hemorrhage, mass, mass effect, extra-axial fluid collection or hydrocephalus. The visualized paranasal sinuses are clear with the exception of mild chronic mucosal disease. No middle ear or mastoid effusion is appreciated. There is no calvarial fracture. The globes are intact bilaterally without CT evidence for retrobulbar hemorrhage. No acute facial fracture is appreciated. There is a subcutaneous hematoma overlying the left zygomatic arch. The cervical spine is in normal anatomic alignment. No acute fracture or dislocation is appreciated. There is no apical pneumothorax. Procedure Note [facility], Radiant Results Inft User - 08/29/2019 5:22 AM CDT Indication: Acute head, facial and neck trauma Comparison: CT of the cervical spine dated 12/25/2015 Technique: Axial images of the head, face and cervical spine were performed without administration of intravenous contrast material. Images of the face and cervical spine were reformatted in the coronal and sagittal plane. CT scan was performed according to ALARA (as low as reasonably achievable) policy. Findings: No acute intracranial abnormality is appreciated. Specifically, there is no acute intracranial hemorrhage, mass, mass effect, extra-axial fluid collection or hydrocephalus. The visualized paranasal sinuses are clear with the exception of mild chronic mucosal disease. No middle ear or mastoid effusion is appreciated. There is no calvarial fracture. The globes are intact bilaterally without CT evidence for retrobulbar hemorrhage. No acute facial fracture is appreciated. There is a subcutaneous hematoma overlying the left zygomatic arch. The cervical spine is in normal anatomic alignment. No acute fracture or dislocation is appreciated. There is no apical pneumothorax. IMPRESSION Impression: No CT evidence for acute intracranial abnormality. No acute facial fracture. Subcutaneous hematoma overlying the left zygomatic arch. No acute fracture or dislocation of the cervical spine. RL: 460 AF: [id number] Performing Organization Address City/State/Zipcode Phone Number PACS/VR/DOSE * CT HEAD WO CONTRAST (08/29/2019 4:46 AM CDT) Specimen Impressions Performed At Impression: PACS/VR/DOSE No CT evidence for acute intracranial abnormality. No acute facial fracture. Subcutaneous hematoma overlying the left zygomatic arch. No acute fracture or dislocation of the cervical spine. RL: 460 AFC: [id number] Narrative Performed At Indication: Acute head, facial and neck trauma PACS/VR/DOSE Comparison: CT of the cervical spine dated 12/25/2015 Technique: Axial images of the head, face and cervical spine were performed without administration of intravenous contrast material. Images of the face and cervical spine were reformatted in the coronal and sagittal plane. CT scan was performed according to ALARA (as low as reasonably achievable) policy. Findings: No acute intracranial abnormality is appreciated. Specifically, there is no acute intracranial hemorrhage, mass, mass effect, extra-axial fluid collection or hydrocephalus. The visualized paranasal sinuses are clear with the exception of mild chronic mucosal disease. No middle ear or mastoid effusion is appreciated. There is no calvarial fracture. The globes are intact bilaterally without CT evidence for retrobulbar hemorrhage. No acute facial fracture is appreciated. There is a subcutaneous hematoma overlying the left zygomatic arch. The cervical spine is in normal anatomic alignment. No acute fracture or dislocation is appreciated. There is no apical pneumothorax. Procedure Note [facility], Radiant Results Inft User - 08/29/2019 5:22 AM CDT Indication: Acute head, facial and neck trauma Comparison: CT of the cervical spine dated 12/25/2015 Technique: Axial images of the head, face and cervical spine were performed without administration of intravenous contrast material. Images of the face and cervical spine were reformatted in the coronal and sagittal plane. CT scan was performed according to ALARA (as low as reasonably achievable) policy. Findings: No acute intracranial abnormality is appreciated. Specifically, there is no acute intracranial hemorrhage, mass, mass effect, extra-axial fluid collection or hydrocephalus. The visualized paranasal sinuses are clear with the exception of mild chronic mucosal disease. No middle ear or mastoid effusion is appreciated. There is no calvarial fracture. The globes are intact bilaterally without CT evidence for retrobulbar hemorrhage. No acute facial fracture is appreciated. There is a subcutaneous hematoma overlying the left zygomatic arch. The cervical spine is in normal anatomic alignment. No acute fracture or dislocation is appreciated. There is no apical pneumothorax. IMPRESSION Impression: No CT evidence for acute intracranial abnormality. No acute facial fracture. Subcutaneous hematoma overlying the left zygomatic arch. No acute fracture or dislocation of the cervical spine. RL: 460 AFC: [id number] Performing Organization Address City/State/Zipcode Phone Number PACS/VR/DOSE * Fast Ultrasound (08/29/2019 4:17 AM CDT) Narrative Performed At Madie Arana DO 08/29/2019 5:50 AM Fast Ultrasound Date/Time: 08/29/2019 4:38 AM Performed by: Madie Arana DO Authorized by: Madie Arana DO Procedure details: Indications: blunt abdominal trauma and blunt chest trauma Comments: No pericardial effusion morrisons pouch negative Bladder and spleen normal * DRUG PANEL 2 URINE (08/29/2019 4:01 AM CDT) AMPHET Presumptive Positive (A) Negative [facility] NEO U Negative Negative [facility] BENZO U Negative Negative [facility] Cocaine [facility] Negative [facility] METHADONE Negative Negative [facility] OPIATES Negative Negative [facility] PCP Negative Negative [facility] THC Negative Negative [facility] Specimen Urine - URINE, CLEAN CATCH Narrative Performed At Urine Drug Cutoff Ranges [facility] Cocaine: 150 ng/mL [facility] Benzodiazepines: 200 ng/mL [place] Methadone: 300 ng/mL Amphetamine: 1,000 ng/mL Opiates: 300 ng/mL Cannabinoids: 50 ng/mL Phencyclidine: 25 ng/mL Barbiturates: 200 ng/mL The results are to be used only for medical (i.e., treatment) purposes. Unconfirmed screening results must not be used for non-medical purposes (e.g., employment testing, legal testing). Performing Organization Address City/[facility] Phone Number [facility] CLIA: [id number], [address] [place] [address] [facility] * HEPATIC FUNCTION PANEL ([id number]) (ALB,T.PRO,BILI T,BU/BC,ALT,AST,ALK PHOS) (08/29/2019 4:00 AM CDT) TOTAL BILI 0.5 0.1 - 1.1 mg/dL [facility] BILI UNCON 0.6 0.1 - 1.1 mg/dL [facility] BILI CONJ 0.0 0.0 - 0.3 mg/dL [facility] T PROTEIN 7.0 6.3 - 8.2 g/dL [facility] ALBUMIN 4.4 3.5 - 5.0 g/dL [facility] ALK PHOS 41 34 - 122 U/L [facility] ALTv 23 5 - 50 U/L [facility] AST(SGOT) 29 13 - 40 U/L [facility] Specimen Blood - VENOUS Performing Organization Address [facility] Cent[facility]ode Phone Number [facility] CLIA: [id number], [address] [place] [address] [facility] * aPTT (08/29/2019 4:00 AM CDT) APTT Patient 24 (L) 26 - 36 Seconds [facility] Specimen Blood - VENOUS Performing Organization Address City/State/Zipcode Phone Number [facility] CLIA: [id number], [address] [place], [place] [address] [facility] * Prothrombin Time (PT) / INR (08/29/2019 4:00 AM CDT) PROTIME PATIENT 10.9 10.1 - 12.6 Seconds [facility] INR 1.0Comment: Normal INR <1.1; [facility] Warfarin Therapeutic range 2.0 [facility] to 3.0 or 2.5 to 3.5, [facility] depending upon the indications. Specimen Blood - VENOUS Performing Organization Address City/State/Zipcode Phone Number [facility] CLIA: [id number], [address] [place], [place] [address] [facility] * Profile / Hemogram (08/29/2019 4:00 AM CDT) Pathologist [facility] WBC 6.48 4.20 - 10.70 [facility] 10*3/L [facility] RBC 4.35 4.26 - 5.52 10*6/L [facility] HGB 14.1 12.2 - 16.4 g/dL [facility] HCT 40.1 38.4 - 49.3 % [facility] MCH 32.4 26.1 - 32.7 pg [facility] MCV 92.2 81.7 - 95.6 fL [facility] MCHC 35.2 (H) 31.2 - 35.0 g/dL [facility] PLT 219 150 - 328 10*3/L [facility] MPV 9.3 (L) 9.8 - 13.0 fL [facility] RDW-CV 12.2 12.1 - 15.4 % [facility] RDW-SD 41.2 38.5 - 51.6 fL [facility] NRBC x10^3 <0.01 10*3/L [facility] NRBC/100 WBC 0.0 0.0 - 10.0 /100 WBCs [facility] IPF % [facility] Specimen Blood - VENOUS Performing Organization Address City/State/Zipcode Phone Number [facility] CLIA: [id number], [address] [place] [address] [facility] * Basic Metabolic Panel (NA, K, CL, CO2, GLUCOSE, BUN, CREATININE, CA) (08/29/2019 4:00 AM CDT) NA 142 135 - 145 mmol/L [facility] K 3.7 3.5 - 5.0 mmol/L [facility] CL 109 (H) 98 - 108 mmol/L [facility] CO2 TOTAL 20 (L) 23 - 31 mmol/L [facility] AGAP 13 2 - 16 [facility] BUN 10 7 - 23 mg/dL [facility] GLUCOSE 200 (H) 70 - 110 mg/dL [facility] CREATININE 0.81 0.60 - 1.25 mg/dL [facility] CALCIUM 8.5 (L) 8.6 - 10.6 mg/dL [facility] eGFR 110.4 mL/min/1.73m2 [facility] Calculation [facility] ([facility] [place]) eGFR 133.8 mL/min/1.73m2 [facility] Calculation [facility] ([facility]) Specimen Blood - VENOUS Narrative Performed At Association of Glomerular Filtration Rate (GFR) and Staging of Kidney Disease* [facility] + + + + [facility] | GFR (mL/min/1.73 m2) | With Kidney Damage | Without Kidney Damage CAMPUS + + + + | >90 | Stage one | Normal + + + + | 60-89 | Stage two | Decreased GFR + + + + | 30-59 | Stage three | Stage three + + + + | 15-29 | Stage four | Stage four + + + + | <15 (or dialysis) | Stage five | Stage five + + + + *Each stage assumes the associated GFR level has been in effect for at least three months. Stages 1 to 5, with or without kidney disease, indicate chronic kidney disease. Notes: Determination of stages one and two (with eGFR >59mL/min/1.73 m2) requires estimation of kidney damage for at least three months as defined by structural or functional abnormalities of the kidney, manifested by either: Pathological abnormalities or Markers of kidney damage (including abnormalities in the composition of the blood or urine or abnormalities in imaging tests). Performing Organization Address City/State/Zipcode Phone Number [facility] CLIA: [id number], [address] [place] [address] [facility] * POCT GLUCOSE (AUTOMATED) (08/29/2019 3:44 AM CDT) POCT GLU 238 (H)Comment: Notified 70 - 110 mg/dL [facility] Specimen Blood Performing Organization Address City/[facility]/Zipcode Phone Number [facility] CLIA: [id number], [address] [place] [address] documented in this encounter Visit Diagnoses Diagnosis Trauma - Primary Injury, other and unspecified, unspecified site Seizure Other convulsions Obesity (BMI 30-39.9) Obesity, unspecified documented in this encounter Administered Medications Action Date Dose Rate Site Medication Order [facility] 08/30/2019 9:01 AM CDT 40 mg Abdomen-SC enoxaparin (LOVENOX) injection 40 mg Given 40 mg, Subcutaneous, DAILY, First dose on 08/29/19 at 0900, Until Discontinued, Routine 40 mg Abdomen-SC Given 08/29/2019 9:10 AM CDT 08/30/2019 9:01 AM CDT 1 tablet HYDROcodone-acetaminophen (NORCO 5) Given 5-325 mg tablet 1 tablet 1 tablet, Oral, Q6HPRN, Starting 08/29/19 at 0607, Until 08/31/19 at 0606, Routine, Pain (scale 4-6) 1 tablet Given 08/29/2019 10:02 PM CDT 1 tablet Given 08/29/2019 11:56 AM CDT Action Date Dose Rate Site Medication Order [facility] 08/29/2019 5:02 AM CDT 25 mcg FENTanyl PF (SUBLIMAZE (PF)) injection Given 25 mcg 25 mcg, Slow IV Push, ONCE, 1 dose, 08/29/19 at 0600, STAT 08/29/2019 5:01 PM CDT 50 mcg FENTanyl PF (SUBLIMAZE (PF)) injection Given 50 mcg 50 mcg, Slow IV Push, Q3HPRN, Starting 08/29/19 at 0607, Until 08/30/19 at 0606, Routine, Pain (scale 7-10) 08/29/2019 5:00 AM CDT 100 mL iohexol (OMNIPAQUE 350 BULK-100 mL) Given injection 100 mL 100 mL, Intravenous, ONCE, 1 dose, 08/29/19 at 0500, Routine 08/29/2019 4:48 AM CDT 1,000 mL 999 mL/hr lactated ringers IV infusion 1,000 mL New Bag at 999 mL/hr, 1,000 mL, IV Infusion, ONCE, 1 dose, 08/29/19 at 0400, STAT 08/29/2019 3:50 AM CDT 2 mg LORazepam (ATIVAN) injection 2 mg Given 2 mg, Slow IV Push, ONCE, 1 dose, 08/29/19 at 0500, STAT 08/29/2019 4:47 AM CDT 0.5 mL Left Deltoid-IM tetanus-diphtheria toxoids (TDVAX) 2-2 Given Lf unit/0.5 mL injection 0.5 mL 0.5 mL, Intramuscular, ONCE, 1 dose, 08/29/19 at 0400, Routine documented in this encounter Insurance Type Payer Benefit Subscriber ID Effective Phone Address Plan / Dates Group PPO/POS [employer] [place] [employer] OF [id number] 2019- [phone] [place] [id number] [place] [address] documented as of this encounter
== END 2019-09-08 19:20 | disposition left against medical advice (07) ==
LOC: FSED 18:27
DX: R11.2 Nausea with vomiting, unspecified (principal)

== ENCOUNTER → 2019-09-17 | Day surgery (SDC) | payer BC ==
[~2019-09-17] MED LIST: CIPRO500 MG PO; FENTANYL CITRATE/PF 100MCG/2 ML INJ ONE; GLYCOPYRROLATE INJ 0.2 MG/ML VIAL ONE; KETAMINE HCL INJ 50 MG/ML 10 ML VIAL ONE; LOMOTIL TABLET1 EACH PO; METOCLOPRAMIDE HCL 10 MG/2ML VIAL ONE; METRONIDAZOLE500 MG PO; MIDAZOLAM HCL 2 MG/2 ML VIAL ONE; NEXIUM40 MG PO; ONDANSETRON ODT8 MG PO; PANTOPRAZOLE 40 MG 10ML VIAL ONE; PREDNISONE20 MG PO; PROPOFOL IV EMULSION 10 MG/ML 50 ML VIAL ONE
[2019-09-17 15:30] VITALS: BP 127/82
--- NOTE | 2019-09-17 15:39 | Operative Report ---
DATE OF PROCEDURE: 09/17/2019 SURGEON: Arnoldo Roman MD PROCEDURE: Esophagogastroduodenoscopy with esophageal dilatation and biopsies. INDICATION FOR PROCEDURE: Dysphagia, nausea, and vomiting. MEDICATIONS: The patient was done under MAC, please see anesthesiologist's note. PROCEDURE IN DETAIL: With the patient in left lateral decubitus position, a flexible fiberoptic Olympus gastroscope was introduced into the esophagus under direct visualization without any difficulty. There was some patchy erythema noted in distal esophagus. A minute tongue of velvety red mucosa was noted to extend proximally from the GE junction that was biopsied to rule out Huynh. A mild stricture noted at the GE junction was dilated to size 52-Austrian Bagley. The scope was then advanced with ease into the stomach traversing a small hiatal hernia. Mucosa overlying the antrum and the body revealed some patchy intense erythema and [id number] edema, and biopsies were obtained, sent to stain for H pylori. The pylorus was of normal contour and shape, it was intubated with ease and the scope was advanced all the way to the second portion of the duodenum. Biopsies were obtained from the proximal second portion and duodenal bulb to rule out sprue. The scope was then withdrawn back into the stomach and retroflexed. Mucosa overlying the fundus and cardia appeared to be within normal limits. The scope was then straightened out, it was subsequently withdrawn. The patient tolerated the procedure well. IMPRESSION: 1. Distal esophagitis. 2. Rule out Huynh esophagus. 3. Esophageal stricture GE junction, dilated to size 52-Austrian Bagley. 4. Small hiatal hernia. 5. Gastritis, biopsied, biopsies sent to stain for Helicobacter pylori. 6. Rule out sprue. PLAN: Follow up histology. Initiate Protonix 40 mg one p.o. q.a.m. a.c. Arnoldo Roman MD [facility] [place] /[id number]
== END | disposition home or self-care (01) ==
LOC: OR 11:08
PROVIDERS: ATTEND Internal Medicine Gastroenterology
DX: K22.2 Esophageal obstruction (principal); K29.50 Unspecified chronic gastritis without bleeding; K21.0 Gastro-esophageal reflux disease with esophagitis; K22.70 Barrett's esophagus without dysplasia; K44.9 Diaphragmatic hernia without obstruction or gangrene; R19.7 Diarrhea, unspecified; Z88.0 Allergy status to penicillin; Z80.0 Family history of malignant neoplasm of digestive organs
CPT/HCPCS: 43239; 43450; C9113; J2250; J2704; J2765; J3010

== ENCOUNTER 2019-10-04 14:02 | Emergency (ER) | payer BC ==
[~2019-10-04] VITALS: Ht 180.3 cm; Wt 92.7 kg
[~2019-10-04 14:02] MED LIST changes: -CIPRO500 MG PO; -FENTANYL CITRATE/PF 100MCG/2 ML INJ ONE; -GLYCOPYRROLATE INJ 0.2 MG/ML VIAL ONE; -KETAMINE HCL INJ 50 MG/ML 10 ML VIAL ONE; -LOMOTIL TABLET1 EACH PO; -METOCLOPRAMIDE HCL 10 MG/2ML VIAL ONE; -METRONIDAZOLE500 MG PO; -MIDAZOLAM HCL 2 MG/2 ML VIAL ONE; -ONDANSETRON ODT8 MG PO; -PANTOPRAZOLE 40 MG 10ML VIAL ONE; -PREDNISONE20 MG PO; -PROPOFOL IV EMULSION 10 MG/ML 50 ML VIAL ONE
[2019-10-04] MEDS ORDERED: KETOROLAC TROMETHAMINE 30 MG/ML VIAL IV STA (15:02)
[2019-10-04] MEDS ORDERED: SODIUM CHLORIDE 0.9% 1000ML 1,000 ML IV STA (15:02)
[2019-10-04] MEDS ORDERED: ONDANSETRON HCL INJ 2MG/ML 2ML 2 MG/ML VIAL IV STA (15:02)
[2019-10-04] MEDS ORDERED: SODIUM CHLORIDE FLUSH 10 ML SYR INJ PRN (15:15)
[2019-10-04] MEDS ORDERED: ONDANSETRON HCL INJ 2MG/ML 2ML 2 MG/ML VIAL ONE (15:24)
[2019-10-04] MEDS ORDERED: KETOROLAC TROMETHAMINE 30 MG/ML VIAL ONE (15:25)
[2019-10-04] MEDS ORDERED: SODIUM CHLORIDE 0.9% 1000ML 1,000 ML ONE (15:25)
[2019-10-04] MEDS ORDERED: CIPRO500 MG PO (16:48)
[2019-10-04] MEDS ORDERED: PREDNISONE20 MG PO (16:48)
[2019-10-04] MEDS ORDERED: LOMOTIL TABLET1 EACH PO (16:48)
[2019-10-04] MEDS ORDERED: ONDANSETRON ODT8 MG PO (16:48)
[2019-10-04] MEDS ORDERED: METRONIDAZOLE500 MG PO (16:48)
== END 2019-10-04 17:32 | disposition home or self-care (01) ==
LOC: FSED 14:02
DX: K52.9 Noninfective gastroenteritis and colitis, unspecified (principal)
CPT/HCPCS: 80053; 81003; 85025; 96374; 96376; 99284; J1885; J2405; J7030

== ENCOUNTER → 2019-10-05 | Outpatient (CLI) | payer BC ==
[~2019-10-05] MED LIST changes: +CIPRO500 MG PO; +LOMOTIL TABLET1 EACH PO; +METRONIDAZOLE500 MG PO; +ONDANSETRON ODT8 MG PO; +PREDNISONE20 MG PO
--- NOTE | 2019-10-05 12:09 | Diagnostic Imaging Report ---
HISTORY: ^NAUSEA VOMITING COMPARISON: None. TECHNIQUE: Limited ultrasound examination of the abdomen was performed with attention to the right upper quadrant and with spectral and color Doppler. FINDINGS: Liver: The liver is normal in size and echogenicity. No focal lesions. Gallbladder: No stones. No sludge, pericholecystic fluid or wall thickening. Common bile duct: 0.4 cm in maximum diameter. Sonographic Ayon's sign: Negative. Main portal vein: 0.8 cm. Pancreas: Visualized portions are normal. Right kidney: The right kidney is normal in size. No hydronephrosis. No sonographically evident solid mass lesion. No ascites nor pleural effusion. IMPRESSION: Unremarkable limited right upper quadrant abdominal exam. Signed by: Keegan Marin MD on 10/05/2019 12:06 PM
--- NOTE | 2019-10-05 17:54 | Diagnostic Imaging Report ---
Hepatobiliary Scan with Gallbladder Ejection Fraction Clinical information: Nausea and vomiting x 1 month Report: Following intravenous administration of 6.6 millicuries of Tc-99m mebrofenin, dynamic images of the abdomen in the anterior projection were obtained through 30 minutes. Sincalide (CCK analog) 1.9 micrograms was administered intravenously over 30 minutes with additional imaging for determination of gallbladder ejection fraction. Perfusion to the liver is normal. Extraction of tracer from the blood pool by the liver parenchyma is normal. Tracer is seen promptly within the biliary tract. The gallbladder begins to fill by 25 minutes post-injection of tracer and fills adequately. Tracer is seen in the small bowel by 10 minutes. The gallbladder ejection fraction with administration of sincalide is 91% (normal greater than 40%). Impression: 1. Filling of the gallbladder excludes the diagnosis of acute cystic duct obstruction/acute cholecystitis. 2. Normal gallbladder ejection fraction of 91% does not support the clinical diagnosis of chronic cholecystitis/gallbladder dyskinesia. Signed by: Dr. Stacie Smith M.D. on 10/05/2019 5:51 PM
== END ==
LOC: US 11:23
PROVIDERS: ATTEND Internal Medicine Gastroenterology
DX: R11.2 Nausea with vomiting, unspecified (principal)
CPT/HCPCS: 76705; 78227; A9537

== ENCOUNTER → 2019-10-25 | Outpatient (CLI) | payer BC ==
--- NOTE | 2019-10-25 18:06 | Diagnostic Imaging Report ---
Solid-phase gastric emptying study Reason for examination: Chronic nausea and vomiting The protocol used for this study is based on the Consensus Recommendations for Gastric Scintigraphy by the [place] [employer] Society and the Society of Nuclear Medicine. Clinical information: The patient is not diabetic. The patient has not had prior gastrointestinal surgery. The patient is taking diazepam and ondansetron but has not taken these today. The patient has been fasting for at least 6 hours prior to this exam. Radiopharmaceutical: Tc-99m sulfur colloid 1 mCi Report: The radiopharmaceutical was added to 1/2 cup egg whites that were then prepared and served with 2 pieces of white bread toasted, 30 grams of jam and 4 ounces of water. The patient took the meal orally without difficulty. Images were obtained of the abdomen in the anterior and posterior projections at 10 minutes post the meal and at 1, 2, 3, and 4 hours. Uptake was determined from the geometric mean of the anterior and posterior counts and the counts were corrected for decay of the radiolabel. The percent gastric retention of the labeled meal at: 1 hour was 72% (normal 30-90%) 2 hours was 20% (normal <60%) 3 hours was 13% (normal <30%) 4 hours was 9% (normal <10%) Impression: Normal gastric emptying pattern. The findings do not support the clinical diagnosis of gastroparesis. Signed by: Dr. Stacie Smith M.D. on 10/25/2019 6:03 PM
== END ==
LOC: NM 09:23
PROVIDERS: ATTEND Internal Medicine Gastroenterology
DX: R11.2 Nausea with vomiting, unspecified (principal)
CPT/HCPCS: 78264; A9541